=== PATIENT | female | born 1950 | race Caucasian/White ===

== ENCOUNTER 2017-10-23 00:10 | Day surgery (SDC) | payer MEDICARE, OTHER ==
[~2017-10-23] VITALS: Ht 165.1 cm; Wt 73.0 kg
[~2017-10-23 00:10] MED LIST: AMIT-104 PO; AMOX-559 PO; ASPI-1471 PO; ASPI-692 PO; BENZ200C15 PO; BUP75 PO; CALC1TAB32 PO; CALCIUM; CHOL400C10 PO; CIT20 PO; CLON-298 PO; CLON-303 PO; CYC10 PO; DICL100G39 TOP; DOCU100C49 PO; DOCU100T19 PO; EXCEDRINE; FISH OIL 1,2001 CAP PO; FISH OIL1 CAP PO; FLU IM; FLU45SYR17 IM; FLU45SYR25 IM ONLY; FLU60SYR30 IM ONLY; FLUO-201 PO; FLUO10TA24 PO; FRO2.5PT PO; GLUC-180 PO; GOLYTE PO; HCTZ25 PO; HYDR-389 PO; HYDR-393 PO; HYDR-4228 PO; HYDR50CA47 PO; HYDRO25 PO; IMITREX; KRIL500C2 PO; LACT1CAP62 PO; LEVO50TA80 PO; LIO5 PO; LUTE20CA11 PO; MELA1TAB2 PO; MELO-207 PO; MULT-1335 PO; MULT-865 PO; MULT1CAP59 PO; OMEG-36 PO; ONDA4TAB PO; OXYC-865 PO; OXYC-870 PO; PANT40TA63 PO; PANT40TA65 PO; PNEI IJ; PNEU0.5D3 IM; PRED20TA6 PO; PROG100C PO; PROLAMINE IODINE; ROPI0.2528 PO; ROPI0.5T25 PO; ROPI2TAB28 PO; SENN-220 PO; SERT25TA87 PO; SIMV-49 PO; SUMA100T32 PO; SUMA6PEN7 SQ; SUMA6VIA16 SQ; THYTROPHIN PMG; TRAM-420 PO; TRAZ-133 PO; TRAZ-156 PO; TRAZ-163 PO; TRAZ50 PO; VALE100C2 PO; VEN75 PO; VENL225T5 PO; VENL75TA98 PO; VIT1CAPS39 PO; VITA-129 PO; ZINC; ZOL5 PO; [UNRECOGNIZED DRUG - REMARK]
[2017-10-23 05:55] VITALS: BP 149/93
[2017-10-23] MEDS ORDERED: [UNRECOGNIZED DRUG - OTHER] IVP ONE ×2 (07:30→07:35)
[2017-10-23] MEDS ORDERED: LIDOCAINE/SOD BICARB 8.4% SYR ID ONE (07:45)
[2017-10-23] MEDS ORDERED: NORMOSOL R SOLN(*) 1000 ML BAG 1,000 ML IV PRN (07:45)
[2017-10-23 08:22] VITALS: BP 124/93
[2017-10-23] MEDS ORDERED: SUCR1TAB85 PO (08:27)
[2017-10-23 08:30] VITALS: BP 108/46
--- NOTE | 2017-10-23 08:38 | Short(Outpt) Discharge Summary ---
Discharge Summary Reason for Hosp/Final Diag: (1) PUD (peptic ulcer disease) Status: Chronic Hospital Course & Plan: EGD with biopsies and colonoscopy completed without problems. Pt has a cratered ulcer at junction of pylorus and duodenal bulb. (2) GERD (gastroesophageal reflux disease) Status: Chronic (3) Colon cancer screening Status: Chronic Departure Discharge to: Home, Self Care Discharge Instructions Home Meds Active Scripts Sucralfate (CARAFATE) 1 Gm Tablet, 1 TAB PO ACHS, #120 TAB 0 Refills Prov:ASHLEY TAM MD 10/23/17 Sumatriptan Succinate (IMITREX) 100 Mg Tablet, 1 TAB PO ONCE Y for migraine, #6 TAB 5 Refills Prov:MILAGROS EDWARDS MD 09/25/17 Peg/Electrolytes (GOLYTELY SOLUTION) 4,000 Ml Soln, 1 GAL PO ONCE, #1 GAL 0 Refills Prov:ASHLEY TAM MD 09/16/17 Ropinirole Hcl (ROPINIROLE HCL) 2 Mg Tablet, 1 TAB PO HS, #90 TAB 0 Refills Prov:SHARA AUGUSTE MD 09/02/17 Liothyronine Sodium (LIOTHYRONINE SODIUM) 5 Mcg Tablet, 1 TAB PO DAILY, #90 TAB 3 Refills Prov:MILAGROS EDWARDS MD 08/16/17 Venlafaxine Hcl (VENLAFAXINE HCL ER) 225 Mg Tab.er.24, 1 TAB PO QDAY, #30 TAB 5 Refills Prov:MILAGROS EDWARDS MD 06/26/17 Meloxicam (MELOXICAM) 15 Mg Tablet, 1 TAB PO QDAY, #90 TAB 4 Refills Prov:MILAGROS EDWARDS MD 06/14/17 Pantoprazole Sodium (PROTONIX) 40 Mg Tablet.dr, 1 TAB PO QDAY, #90 TAB.SR 3 Refills Prov:MILAGROS EDWARDS MD 02/26/17 Simvastatin (SIMVASTATIN) 20 Mg Tablet, 1 TAB PO HS, #90 TAB 3 Refills Prov:MILAGROS EDWARDS MD 01/28/17 Sertraline Hcl (ZOLOFT) 25 Mg Tablet, 1 TAB PO QDAY, #30 TAB 1 Refill Prov:MILAGROS EDWARDS MD 01/28/17 Frovatriptan Succinate (FROVA) 2.5 Mg Tablet, 1 TAB PO ONCE Y for HEADACHE, #6 TAB 5 Refills If headache returns dose may be repeated. Prov:MILAGROS EDWARDS MD 08/14/16 Reported Medications Cholecalciferol (Vitamin D3) (VITAMIN D) 400 Unit Capsule, 800 UNIT PO, CAPSULE 10/15/17 Krill Oil (KRILL OIL) 500 Mg Capsule, 500 MG PO DAILY, CAPSULE 10/15/17 Valerian Root (VALERIAN ROOT) 100 Mg Capsule, 3 CAP PO HS, CAPSULE 04/17/15 Diclofenac Sodium 1% Gel (VOLTAREN 1% GEL) 100 Gm Gel..gram., 2 GM TOP Q4H Y for PAIN 04/17/15 Acetaminophen/Hydrocodone (HYDROCODON-ACETAMINOPHN 10-325) 1 Each Tab, 1 EACH PO Q4H Y for PAIN, TAB 04/17/15 Docusate Sodium (STOOL SOFTENER) 100 Mg Tablet, 1 TAB PO BID 04/17/15 Progesterone,Micronized (PROGESTERONE) 100 Mg Capsule, 2 TAB PO HS, CAPSULE 04/17/15 Melatonin/Pyridoxine Hcl (B6) (MELATONIN 10 MG TABLET) 1 Each Tab.mphase, 2 TAB PO HS 03/30/15 Vit C/Beba Ac/Lut/Copper/Znox (PRESERVISION LUTEIN SOFTGEL) 1 Each Capsule, 1 CAP PO QDAY, CAPSULE 10/20/14 Hptujksd-Lhzehtl-Rtvv 149-Hyal (GLUCOSAMINE CHONDROITIN COMPLX) 1 Each Tablet, 1 TAB PO DAILY 03/29/14 Calcium Carb & Cit/Vitamin D3 (CALCIUM + D3 ER TABLET) 1 Each Tablet.er, 1 TAB PO DAILY 03/29/14 Follow up Referrals: General Surgery - 11/08/17 @ Surgery, General with Ashley Tam Md You have a follow up appointment scheduled with Dr. Tam on 11/08/17, at 11:00am. Diet: Regular Activity: As Tolerated Special Instructions: Your upper endoscopy and your colonoscopy were completed without any problems and your colon prep was excellent (Good Job!!). You have an ulcer where your stomach empties into your duodenum. Because of this, I recommed that you continue taking pantoprazole once every day as you're doing. I am going to add a 30 day course of another medication called carafate that helps the ulcer to heal. Using NSAIDS (non-steroidal anti-inflammatory drugs such as ibuprofen, motrin, aleve, advil, naproxen, naprosyn, meloxicam, etc. Tylenol (acetaminophen) is OK) can lead to ulcers and so any NSAID type of medication should be avoided. Your colon was almost normal. 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 I have provided a handout to you regarding this condition. I recommend getting off the laxative and trying an alternative bowel regimen that I have also provided for you. You have a hiatal hernia where a small portion of your upper stomach is protruding into your chest. This is a common (40 percent of people that I see have this to some degree) benign condition and I don't recommend that anything be done about this. I will see you back in my office in the next couple weeks to discuss these with you and see how you are doing. At any rate, your next colonoscopy should be in 10 years for screening. Problem Qualifiers (1) GERD (gastroesophageal reflux disease): Esophagitis presence: without esophagitis Qualified Codes: K21.9 - Gastro- esophageal reflux disease without esophagitis ASHLEY TAM MD October 23, 2017 08:38
[2017-10-23 08:54] VITALS: BP 130/76
[2017-10-23 08:56] VITALS: BP 125/84
[2017-10-23] MEDS ORDERED: PROPOFOL EMUL(*) 10MG/ML 20 ML 120 ML ONE (08:59)
[2017-10-23] MEDS ORDERED: SUMA100T32 PO (17:08)
== END 2017-10-23 09:50 | disposition home or self-care (01) ==
LOC: OR 00:10
PROVIDERS: ATTEND Surgery
DX: Z12.11 Encounter for screening for malignant neoplasm of colon (principal); K63.89 Other specified diseases of intestine; K44.9 Diaphragmatic hernia without obstruction or gangrene; K25.7 Chronic gastric ulcer without hemorrhage or perforation
CPT/HCPCS: 00812; 43239; 87077; 88305; A9270; G0121; J2704

== ENCOUNTER → 2017-10-25 | Outpatient (CLI) | payer MEDICARE, OTHER ==
[~2017-10-25] MED LIST changes: +SUCR1TAB85 PO
--- NOTE | 2017-10-25 09:37 | RADIOLOGY IMAGING REPORT ---
FACILITY: [facility] - [place] PATIENT NAME: Vicky Hughes : 1950 MR: [id number] V: [id number] EXAM DATE: ORDERING PHYSICIAN: ASHLEY TAM TECHNOLOGIST: Location: [facility] Patient: Vicky Hughes : 1950 Visit/Account:[id number] Date of Sevice: 10/25/2017 GALLBLADDER HISTORY: Right upper quadrant pain COMPARISON: None. FINDINGS: Gallbladder: Negative.. Bile ducts: There is no biliary ductal dilation with the CBD measuring 4 mm. Liver: Negative. Pancreas: Negative. Right kidney: Negative. Upper abdominal aorta and IVC: Patent. Ascites: None visualized. Other findings: None significant IMPRESSION: 1. Normal right upper quadrant ultrasound. Report Dictated By: Micheal Up MD at 10/25/2017 9:31 AM Report E-Signed By: Micheal Up MD at 10/25/2017 9:33 AM WSN:[email or web address]
== END ==
LOC: US 01:10
PROVIDERS: ATTEND Surgery
DX: R10.10 Upper abdominal pain, unspecified (principal)
CPT/HCPCS: 76705

== ENCOUNTER 2017-11-01 14:02 | Emergency (ER) | payer MEDICARE, OTHER ==
--- NOTE | 2017-11-01 14:15 | ER Report ---
History and Physical Time Seen By MD: 14:15 Hx. of Stated Complaint: PT REPORTS ITCHING OF RECTUM AT NIGHT FOR 6-8 WEEKS, APPLIED SCOTCH TAPE AND SAW LITTLE WHITE WORMS HPI/ROS CHIEF COMPLAINT: Possible pinworm infection HISTORY OF PRESENT ILLNESS: 67-year-old female patient presents to emergency room with complaint of a possible pinworm infection. Patient states been going on for the past several weeks. Patient states she's noticed that she has rectal itching which is most significant at night. Patient states she had a colonoscopy approximately one week ago which showed no acute findings. Patient states that she has significant amount of irritation to the rectum itself. Patient states that she was concerned about possible pinworm infection and did place scratch tape over her rectum at night. She states the mornings there were white worms that she noted on the tape. Patient states that she has tried apple cider vinegar, which seem to help, coconut milk, which did not seem to help, petroleum jelly also she did not seem to help. Allergies: Coded Allergies: Sulfa (Sulfonamide Antibiotics) (Verified Allergy, Severe, GENERALIZED SYMPTOMS , 01/24/15) Home Meds Active Scripts Albendazole (ALBENZA) 200 Mg Tab, 400 MG PO ONCE, #4 TAB Take 2 tabs today adn then take 2 tabs in 2 weeks on 11/15/17. Take on an empty stomach. Prov:RAYMOND ETIENNE 11/01/17 Sumatriptan Succinate (IMITREX) 100 Mg Tablet, 1 TAB PO ONCE Y for migraine, #6 TAB 5 Refills Prov:MILAGROS EDWARDS MD 10/23/17 Sucralfate (CARAFATE) 1 Gm Tablet, 1 TAB PO ACHS, #120 TAB 0 Refills Prov:ASHLEY TAM MD 10/23/17 Ropinirole Hcl (ROPINIROLE HCL) 2 Mg Tablet, 1 TAB PO HS, #90 TAB 0 Refills Prov:SHARA AUGUSTE MD 09/02/17 Liothyronine Sodium (LIOTHYRONINE SODIUM) 5 Mcg Tablet, 1 TAB PO DAILY, #90 TAB 3 Refills Prov:MILAGROS EDWARDS MD 08/16/17 Venlafaxine Hcl (VENLAFAXINE HCL ER) 225 Mg Tab.er.24, 1 TAB PO QDAY, #30 TAB 5 Refills Prov:MILAGROS EDWARDS MD 06/26/17 Pantoprazole Sodium (PROTONIX) 40 Mg Tablet.dr, 1 TAB PO QDAY, #90 TAB.SR 3 Refills Prov:MILAGROS EDWARDS MD 02/26/17 Simvastatin (SIMVASTATIN) 20 Mg Tablet, 1 TAB PO HS, #90 TAB 3 Refills Prov:MILAGROS EDWARDS MD 01/28/17 Sertraline Hcl (ZOLOFT) 25 Mg Tablet, 1 TAB PO QDAY, #30 TAB 1 Refill Prov:MILAGROS EDWARDS MD 01/28/17 Frovatriptan Succinate (FROVA) 2.5 Mg Tablet, 1 TAB PO ONCE Y for HEADACHE, #6 TAB 5 Refills If headache returns dose may be repeated. Prov:MILAGROS EDWARDS MD 08/14/16 Reported Medications Cholecalciferol (Vitamin D3) (VITAMIN D) 400 Unit Capsule, 800 UNIT PO, CAPSULE 10/15/17 Krill Oil (KRILL OIL) 500 Mg Capsule, 500 MG PO DAILY, CAPSULE 10/15/17 Valerian Root (VALERIAN ROOT) 100 Mg Capsule, 3 CAP PO HS, CAPSULE 04/17/15 Diclofenac Sodium 1% Gel (VOLTAREN 1% GEL) 100 Gm Gel..gram., 2 GM TOP Q4H Y for PAIN 04/17/15 Acetaminophen/Hydrocodone (HYDROCODON-ACETAMINOPHN 10-325) 1 Each Tab, 1 EACH PO Q4H Y for PAIN, TAB 04/17/15 Docusate Sodium (STOOL SOFTENER) 100 Mg Tablet, 1 TAB PO BID 04/17/15 Progesterone,Micronized (PROGESTERONE) 100 Mg Capsule, 2 TAB PO HS, CAPSULE 04/17/15 Melatonin/Pyridoxine Hcl (B6) (MELATONIN 10 MG TABLET) 1 Each Tab.mphase, 2 TAB PO HS 03/30/15 Vit C/Beba Ac/Lut/Copper/Znox (PRESERVISION LUTEIN SOFTGEL) 1 Each Capsule, 1 CAP PO QDAY, CAPSULE 10/20/14 Kmujojoq-Wpckdik-Mrfi 149-Hyal (GLUCOSAMINE CHONDROITIN COMPLX) 1 Each Tablet, 1 TAB PO DAILY 03/29/14 Calcium Carb & Cit/Vitamin D3 (CALCIUM + D3 ER TABLET) 1 Each Tablet.er, 1 TAB PO DAILY 03/29/14 Past Medical/Surgical History Patient has a past medical history of migraines, dementia, hypertension, cardiac arrhythmia, hyperlipidemia, ulcer, Patel's esophagitis, H. pylori, reflux, hiatal hernia, mild endometriosis, arthritis, macular degeneration, hypothyroidism, skin cancer, alcohol use, depression. Patient has a surgical history of hiatal hernia repair, colonoscopy, meniscus repair bilaterally, reattached the lens in left eye, cataract surgery, skin cancer removed from nose, bilateral breast biopsy. Patient has a family medical history of cancer, CAD, stroke, depression. Reviewed Nurses Notes: Yes Hx Smoking: No Smoking Status: Never Smoker Exposure to Second Hand Smoke?: Yes Hx Substance Use Disorder: No Hx Alcohol Use: Yes Constitutional Vital Sign - Last 24 Hours 11/01/17 11/01/17 14:08 14:51 Temp 98.4 Pulse 94 84 Resp 16 16 B/P (MAP) 152/101 145/86 (105) Pulse Ox 92 95 O2 Delivery Room Air Room Air Physical Exam General Appearance: The patient is alert, has no immediate need for airway protection and no current signs of toxicity. Respiratory: Chest is non tender, lungs are clear to auscultation. Cardiac: regular rate and rhythm Gastrointestinal: Abdomen is soft and non tender, no masses, bowel sounds normal. Rectum was evaluated, patient did have erythema noted around the rectum. Musculoskeletal: Neck: Neck is supple and non tender. Extremities have full range of motion and are non tender. Skin: No rashes or lesions. DIFFERENTIAL DIAGNOSIS: After history and physical exam differential diagnosis was considered for pinworm infection. Medical Decision Making ED Course/Re-evaluation ED Course Patient was admitted in exam room, history and physical obtained. Differential diagnoses were considered. On reexamination patient had some erythema noted around her rectum, no other abnormalities noted. Due to the history especially with the itching being worse at night and the white worms found on the taper believe that she likely does have pinworm. We will go ahead and treat her with an antiparasitic medication. She is return to the emergency room if condition worsens. Patient verbalized understanding and agreement with plan. Decision to Disposition Date: November 01, 2017 Decision to Disposition Time: 14:30 Depart Departure Latest Vital Signs Vital Signs Date Time Temp Pulse Resp B/P (MAP) Pulse Ox O2 Delivery O2 Flow Rate FiO2 11/01/17 14:51 84 16 145/86 (105) 95 Room Air 11/01/17 14:08 98.4 Impression: Primary Impression: Pinworm infection Condition: Improved Disposition: HOME OR SELF-CARE Referrals: MILAGROS EDWARDS MD (PCP) New Scripts Albendazole (ALBENZA) 200 Mg Tab 400 MG PO ONCE, #4 TAB Take 2 tabs today adn then take 2 tabs in 2 weeks on 11/15/17. Take on an empty stomach. Prov: RAYMOND ETIENNE 11/01/17 Patient Instructions: Enterobiasis (ED) Additional Instructions: Increase fluid intake. Get plenty of rest. Take medication as directed, one dose today and then 1 dose in 2 weeks. Take medication on an empty stomach. Return to the ER if condition worsens. Change linens today prior to going to bed. Follow up with your Primary care provider in the next week. RAYMOND ETIENNE November 01, 2017 14:15
[2017-11-01] MEDS ORDERED: ALBE200T PO (14:31)
[2017-11-01 14:51] VITALS: BP 145/86
== END 2017-11-01 14:53 | disposition home or self-care (01) ==
LOC: ER 14:04
DX: B80 Enterobiasis (principal)
CPT/HCPCS: 99282

== ENCOUNTER → 2018-07-14 | Outpatient (CLI) | payer MEDICARE, OTHER ==
[~2018-07-14] MED LIST changes: +ALBE200T PO; +ALPH1TAB PO; +CA C1TAB9 PO; +CHOL100058 PO; -CLON-298 PO; +CLON-331 PO; +ECHI380C; +MELA10CA PO; -ROPI0.2528 PO; +ROPI0.2530 PO; -TRAZ-156 PO; -TRAZ-163 PO; +TRAZ100T31 PO; +TRAZ50TA34 PO; +VITA-175 PO; +tylenol pm PO
[2018-07-14 12:19] LABS: PLATELET COUNT, AUTOMATED 320 K/uL (150-450)
== END ==
LOC: LAB 11:41
PROVIDERS: ATTEND Emergency Medicine
DX: M85.80 Other specified disorders of bone density and structure, unspecified site (principal); R03.0 Elevated blood-pressure reading, without diagnosis of hypertension; R20.8 Other disturbances of skin sensation
CPT/HCPCS: 36415; 82040; 82247; 82306; 82310; 82374; 82435; 82565; 82607; 82947; 83540; 83550; 84075; 84132; 84155; 84295; 84443; 84450; 84460; 84520; 85025

== ENCOUNTER → 2018-08-04 | Outpatient (CLI) | payer MEDICARE, OTHER | LOC: LAB 15:34 | PROVIDERS: ATTEND Emergency Medicine | DX: R94.5 Abnormal results of liver function studies (principal) | CPT/HCPCS: 36415; 82103; 82390; 82784; 83516; 86706; 86707; 87340; 87350; G0472; 82040; 82247; 82248; 84075; 84155; 84450; 84460; 86803 ==

== ENCOUNTER → 2018-08-14 | Outpatient (CLI) | payer MEDICARE, OTHER ==
[~2018-08-14] MED LIST changes: +ROS10 PO
--- NOTE | 2018-08-15 09:47 | RADIOLOGY IMAGING REPORT ---
FACILITY: [facility] - [place] PATIENT NAME: AI GREEN : [id number] MR: [id number] V: [id number] EXAM DATE: ORDERING PHYSICIAN: MILAGROS EDWARDS TECHNOLOGIST: Karime Dodson PROCEDURE:BILATERAL DIGITAL SCREENING MAMMOGRAM WITH CAD ASSISTED INTERPRETATION & 3D TOMOSYNTHESIS COMPARISON:Prior mammograms 01/20/16, 01/06/15, 11/25/13, 07/24/12. INDICATIONS:screening FINDINGS: There are scattered areas of fibroglandular density throughout the breasts. There is a nodular area of increased density just lateral to midline in the anterior 1/3 of the Right breast on the Right CC view for which Spot compression view is recommended. This appears to be posterior to mid nipple line on the Right MLO view. There is a new grouping of pleomorphic calcifications in the anterior 1/3 of the Left breast just above midline on the Left MLO view just lateral to midline on the Left CC view for which Spot magnification view is recommended. The parenchymal pattern has remained stable allowing for difference in mammographic technique & patient positioning. DIAGNOSTIC CATEGORY 0--INCOMPLETE: NEED ADDITIONAL IMAGING EVALUATION. RECOMMENDATIONS: ADDITIONAL MAMMOGRAPHIC VIEWS REQUIRED: BILATERAL BREASTS. IMPRESSION: BIRADS 0: Incomplete. Additional views of both breasts recommended as described. Dictated by: Gracia Macias M.D. on 08/14/2018 at 17:31 Transcribed by: OSEI on 08/15/2018 at 9:01 Approved by: Gracia Macias M.D. on 08/15/2018 at 9:45 [facility]
== END ==
LOC: MAMO 00:34
PROVIDERS: ATTEND Internal Medicine
DX: R92.2 Inconclusive mammogram (principal)
CPT/HCPCS: 77063; 77067

== ENCOUNTER → 2018-08-20 | Outpatient (CLI) | payer MEDICARE, OTHER ==
--- NOTE | 2018-08-20 09:43 | RADIOLOGY IMAGING REPORT ---
FACILITY: [facility] - [place] PATIENT NAME: Vicky Hughes : 1950 MR: [id number] V: [id number] EXAM DATE: ORDERING PHYSICIAN: DORI BATISTA TECHNOLOGIST: [place] [facility] [place]icky [place] : 1950 Visit/Account:[id number] Date of Sevice: 08/20/2018 LIVER HISTORY: Elevated liver and times COMPARISON: Gallbladder ultrasound October 25, 2017 FINDINGS: Gallbladder: Unremarkable; no stones or sludge. Liver: Liver is mildly enlarged at 16.6 cm in length although no focal hepatic lesions identified Common duct: Normal, 6.2 mm diameter. Pancreas: Partially obscured by bowel, visualized aspects unremarkable. Right kidney: Right kidney appears unremarkable measuring 9.5 cm in length Upper abdominal aorta and IVC: Patent. Ascites: None visualized. IMPRESSION: Mild hepatomegaly Report Dictated By: Gracia Macias MD at 08/20/2018 9:36 AM Report E-Signed By: Gracia Macias MD at 08/20/2018 9:38 AM WSN:[id number]
== END ==
LOC: US 08-15 02:34
PROVIDERS: ATTEND Emergency Medicine
DX: R16.2 Hepatomegaly with splenomegaly, not elsewhere classified (principal)
CPT/HCPCS: 76705

== ENCOUNTER → 2018-09-01 | Outpatient (CLI) | payer MEDICARE, OTHER ==
[~2018-09-01] MED LIST changes: -ROS10 PO; +ROSU10TA PO
--- NOTE | 2018-09-02 15:30 | RADIOLOGY IMAGING REPORT ---
FACILITY: [facility] - [place] PATIENT NAME: AI GREEN : [id number] MR: [id number] V: [id number] EXAM DATE: ORDERING PHYSICIAN: DORI BATISTA TECHNOLOGIST: Marce Naranjo PROCEDURE:BILATERAL DIAGNOSTIC DIGITAL MAMMOGRAM WITH CAD ASSISTED INTERPRETATION & 3D TOMOSYNTHESIS COMPARISON:Prior mammograms 08/14/18, 01/20/16, 01/06/15, 11/25/13, 07/24/12. INDICATIONS:abnormal mammogram FINDINGS: The patient returned for Spot compression views in the CC & MLO projections bilaterally and a Spot magnification view in the Left CC projection. The focal asymmetry in the anterior 1/3 of the Right breast on the recent study appeared compressible and apparently represented a summation shadow. The new slightly pleomorphic calcifications in the anterior 1/3 of the Left breast upper outer quadrant warrant further evaluation. The patient states she does not want to do a Stereo tactic breast biopsy therefore surgical excision coordinated with mammographic hookwire localization recommended. DIAGNOSTIC CATEGORY 4--SUSPICIOUS FOR MALIGNANCY. RECOMMENDATIONS: SURGICAL BIOPSY COORDINATED WITH MAMMOGRAM HOOKWIRE LOCALIZATION: LEFT BREAST. IMPRESSION: BIRADS 4: Suspicious for malignancy. Surgical biopsy of the Left breast coordinated with mammographic hookwire localization recommended as described above. Dictated by: Grcaia Macias M.D. on 09/01/2018 at 17:14 Transcribed by: OSEI on 09/02/2018 at 8:28 Approved by: Gracia Macias M.D. on 09/02/2018 at 15:29 [facility]
== END ==
LOC: MAMO 00:25
PROVIDERS: ATTEND Emergency Medicine
DX: R92.1 Mammographic calcification found on diagnostic imaging of breast (principal)
CPT/HCPCS: 77062; 77066

== ENCOUNTER 2018-09-12 00:49 | Day surgery (SDC) | payer MEDICARE, OTHER ==
[~2018-09-12] VITALS: Ht 162.6 cm; Wt 75.3 kg
[2018-09-12 11:46] VITALS: BP 135/82
[2018-09-12] MEDS ORDERED: NORMOSOL R SOLN(*) 1000 ML BAG 1,000 ML IV PRN (12:40)
[2018-09-12] MEDS ORDERED: ceFAZolin(*) 2GM/D5W 50ML 50 ML IVPB ONE (12:40)
[2018-09-12] MEDS ORDERED: MIDAZOLAM 2 MG/2 ML VIAL IVP PRN (12:40)
[2018-09-12] MEDS ORDERED: LIDOCAINE/SOD BICARB 8.4% SYR ID ONE (12:40)
[2018-09-12] MEDS ORDERED: LIDOCAINE MPF 1% 5 ML VIAL ONE (12:44)
[2018-09-12] MEDS ORDERED: fentaNYL CITR 100 MCG/2 ML AMP ONE (13:18)
[2018-09-12] MEDS ORDERED: KETAMINE HCL-NS 50 MG/5 ML SYR ONE (13:18)
[2018-09-12] MEDS ORDERED: ONDANSETRON 4 MG/2 ML VIAL ONE (13:18)
[2018-09-12] MEDS ORDERED: DEXAMETHASONE SOD PHOS 10MG/ML ONE (13:18)
[2018-09-12] MEDS ORDERED: PROPOFOL EMUL(*) 10MG/ML 20 ML 20 ML ONE (13:18)
[2018-09-12] MEDS ORDERED: LIDOCAINE 2% IV 100 MG/5ML SYR ONE (13:18)
[2018-09-12] MEDS ORDERED: ROPIVACAINE 0.5% 20 ML VIAL ONE (14:02)
[2018-09-12] MEDS ORDERED: ePHEDrine 25 MG/5 ML DISP.SYR IVP ONE (14:27)
[2018-09-12] MEDS ORDERED: ACETAMINOPHEN(*)1000 MG/100 ML 100 ML IVPB ONE (15:39)
[2018-09-12] MEDS ORDERED: DOCU-416 PO (15:41)
--- NOTE | 2018-09-12 15:46 | Short(Outpt) Discharge Summary ---
Discharge Summary Reason for Hosp/Final Diag: (1) Calcification of left breast on mammography Status: Chronic Hospital Course & Plan: Wire-guided left breast excisional biopsy completed without problems. Departure Discharge to: Home, Self Care Discharge Instructions Home Meds Active Scripts Docusate Sodium (COLACE) 100 Mg Capsule, 1 CAP PO BID, #30 CAP 0 Refills TAKE WITH A FULL GLASS OF WATER Prov:ASHLEY TAM MD 09/12/18 Sertraline Hcl (ZOLOFT) 25 Mg Tablet, 1 TAB PO QDAY, #90 TAB 3 Refills Prov:DORI BATISTA MD 08/18/18 Liothyronine Sodium (LIOTHYRONINE SODIUM) 5 Mcg Tablet, 1 TAB PO DAILY, #90 TAB PRN Refills Prov:DORI BATISTA MD 08/18/18 Venlafaxine Hcl (VENLAFAXINE HCL ER) 225 Mg Tab.er.24, 1 TAB PO QDAY, #90 TAB 3 Refills Prov:DORI BATISTA MD 08/14/18 Rosuvastatin Calcium (CRESTOR) 10 Mg Tab, 10 MG PO QDAY, #60 TAB 0 Refills Prov:DORI BATISTA MD 08/11/18 Sumatriptan Succinate (IMITREX) 100 Mg Tablet, 1 TAB PO ONCE PRN for migraine, #6 TAB Prov:DORI BATISTA MD 08/05/18 Pantoprazole Sodium (PROTONIX) 40 Mg Tablet.dr, 1 TAB PO QDAY, #90 TAB.SR 3 Refills Prov:MILAGROS EDWARDS MD 03/31/18 Reported Medications Echinacea (ECHINACEA) Unknown Strength Capsule 07/14/18 Melatonin (MELATONIN) 10 Mg Capsule, 10 MG PO QHS, CAPSULE 07/14/18 [tylenol pm] No Conflict Check, 2 TAB PO QHS 07/14/18 Tramadol Hcl (TRAMADOL HCL) 50 Mg Tablet, 50 MG PO Q6H PRN for PRN, TAB 07/14/18 Calcium/Magnesium (CALCIUM MAGNESIUM TABLET) 1 Each Tablet, 1 EACH PO DAILY 07/14/18 Cholecalciferol (Vitamin D3) (VITAMIN D) 1,000 Unit Capsule, 1 CAP PO QDAY, CAPSULE 12/31/17 Vitamin B Complex (B COMPLEX) 1 Each Tablet, 1 TAB PO QDAY 12/26/17 Valerian Root (VALERIAN ROOT) 100 Mg Capsule, 3 CAP PO HS, CAPSULE 04/17/15 Acetaminophen/Hydrocodone (HYDROCODON-ACETAMINOPHN 10-325) 1 Each Tab, 1 EACH PO Q4H PRN for PAIN, TAB 04/17/15 Vit C/Beba Ac/Lut/Copper/Znox (PRESERVISION LUTEIN SOFTGEL) 1 Each Capsule, 1 CAP PO QDAY, CAPSULE 10/20/14 Gjzkfemo-Wmcrjxt-Hyjc 149-Hyal (GLUCOSAMINE CHONDROITIN COMPLX) 1 Each Tablet, 1 TAB PO DAILY 03/29/14 Discontinued Reported Medications Fyumk-D-Ejtsceuniagyv (Beano) 150 Unit Tablet, 1 TAB PO PRN 07/14/18 Discontinued Scripts Ropinirole Hcl (ROPINIROLE HCL) 2 Mg Tablet, 1 TAB PO HS, #90 TAB 1 Refill Prov:MILAGROS EDWARDS MD 05/21/18 Follow up Referrals: General Surgery - 09/26/18 @ Surgery, General with ASHLEY TAM MD You have a follow up appointment scheduled with Dr. Tam on 09/26/18, at 10:30am. Diet: Regular Activity: As Tolerated Special Instructions: You may remove the white surgical dressing on 09/14/18, then you can shower. After showering, leave the incision open to air but leave the steristrips in place until they fall off on their own. Do not immerse the incision for 2 weeks. ASHLEY TAM MD Sep 12, 2018 15:46
--- NOTE | 2018-09-12 15:52 | Post Operative Progress Note ---
Post Operative Progress Note Date: Sep 12, 2018 Time: 15:46 Surgeon: Chelita Dictation number: [id number] Anesthesia: LMA by Dr. Dow Pre-Op Diagnosis: Left breast microcalcifications on mammography Post-Op Diagnosis: DEL Findings: None Procedure(s): Left breast wire-guided excision of microcalcifications Specimen Removed:(May be N/A): Left breast lesion Complications: None Fluids: See anesthesia record Estimated Blood Loss: Minimal Date OP Note Dictated: Sep 12, 2018 Time OP Note Dictated: 15:47 ASHLEY TAM MD Sep 12, 2018 15:52
[2018-09-12 16:15] VITALS: BP 118/71
[2018-09-12 16:30] VITALS: BP 108/61
[2018-09-12 16:37] VITALS: BP 118/82
[2018-09-12 16:38] VITALS: BP 109/79
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
--- NOTE | 2018-09-16 12:52 | RADIOLOGY IMAGING REPORT ---
FACILITY: [facility] - [place] PATIENT NAME: AI GREEN : [id number] MR: [id number] V: [id number] EXAM DATE: [id number] ORDERING PHYSICIAN: ASHLEY TAM TECHNOLOGIST: Marce Naranjo PROCEDURE: BREAST SPECIMEN COMPARISON: None. INDICATIONS: calcifications FINDINGS: Please see localization report. CONCLUSION: Dictated by: Villa Campbell M.D. on 09/12/2018 at 16:25 Transcribed by: OSEI on 09/15/2018 at 11:26 Approved by: Senthil Ludwig M.D. on 09/16/2018 at 12:51 [facility]
--- NOTE | 2018-09-16 12:52 | RADIOLOGY IMAGING REPORT ---
FACILITY: [facility] PATIENT NAME: AI GREEN : [id number] MR: [id number] V: [id number] EXAM DATE: [id number] ORDERING PHYSICIAN: ASHLEY TAM TECHNOLOGIST: Marce Naranjo PROCEDURE: NEEDLE LOCALIZATION LEFT BREAST COMPARISON: None. INDICATIONS: Left breast calcifications. FINDINGS: The procedure and risks including bleeding, infection, and inadequate localization were explained to the patient who agreed to proceed. Using a lateral to medial approach the Left breast calcifications were centered in the opening of a compression paddle. The breast was sterilely prepped and draped. A guide needle was then advanced into the breast. A hook wire was deployed. Final mammographic images demonstrate the shaft of the wire in close proximity to the Left retroareolar calcifications. A sterile dressing was applied. Left breast specimen radiograph demonstrates the hook wire and calcifications projecting on the specimen. The findings were discussed with Dr. Ashley Tam. RECOMMENDATIONS: CONCLUSION: IMPRESSION: Results pending: Mammography guided needle localization of Left breast calcifications. Dictated by: Villa aCmpbell M.D. on 09/12/2018 at 16:24 Transcribed by: OSEI on 09/15/2018 at 11:25 Approved by: Senthil Ludwig M.D. on 09/16/2018 at 12:50 [facility]
== END 2018-09-12 16:15 | disposition home or self-care (01) ==
LOC: OR 00:49
PROVIDERS: ATTEND Surgery
DX: C50.912 Malignant neoplasm of unspecified site of left female breast (principal)
CPT/HCPCS: 19101; 19283; 88305; 88344; J0131; J1100; J2001; J2405; J2704; J2795; J3010; J3490; J0690

== ENCOUNTER 2018-11-27 09:00 | Outpatient (RCR) | payer MEDICARE, OTHER ==
[2018-10-07 14:37] VITALS: BP 136/85
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
[2018-10-08 13:50] VITALS: BP 133/84
[2018-10-08 13:56] LABS: PLATELET COUNT, AUTOMATED 365 K/uL (150-450)
[~2018-11-27 09:00] MED LIST changes: +DOCU-416 PO; +FURO-47 PO; +LIOT5TAB PO; -TRAZ50TA34 PO; +TRAZ50TA52 PO; +ZOLP-350 PO
[2018-12-23] MEDS ORDERED: ROSU10TA PO (13:45)
== END 2019-01-04 ==
LOC: RAON 09:00
PROVIDERS: ATTEND Radiology Radiation Oncology
DX: Z51.11 Encounter for antineoplastic chemotherapy (principal); D05.12 Intraductal carcinoma in situ of left breast
CPT/HCPCS: 77280; 77300; 77334; 77336; 77412; G0463; 36415; 77290; 77295; 82040; 82247; 82310; 82374; 82435; 82565; 82947; 84075; 84132; 84155; 84295; 84450; 84460; 84520; 85025; 99202

== ENCOUNTER 2018-11-27 10:21 | Outpatient (RCR) | payer MEDICARE, OTHER ==
[2018-10-24 08:27] VITALS: BP 131/88
--- NOTE | 2018-10-24 10:16 | ONCOLOGY CONSULTATION ---
EVENT DATE: October 24, 2018 REFERRING PHYSICIANS MD Bib Vasquez MD REASON FOR CONSULTATION Evaluation and management of left breast DCIS. ONCOLOGY HISTORY Patient is a 68-year old female which on: 1. August 14, 2018: Screening mammogram showed pleomorphic calcification in the left breast. 2. September 01, 2018: Patient had bilateral diagnostic mammogram with CAD-assisted interpretation and 3D tomosynthesis and it was suspicious for malignancy. 3. September 12, 2018: Patient had needle localization lumpectomy of the left breast and pathology came back positive for 1.2 cm micropapillary and cribriform DCIS, ER 82.5%, VA 40.9%, HER2/mirna 0%, Ki-67 2% and D53 1%. Patient started adjuvant radiation therapy September 2018. PAST MEDICAL HISTORY 1. 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 2. Hyperlipidemia. 3. Migraine. 4. Restless leg syndrome. 5. GERD. 6. Peptic ulcer disease. 7. Depression. PAST SURGICAL HISTORY 1. Bilateral arthroscopic knee surgeries. 2. Hernia repair. 3. Laparoscopy at age of 29 years. 4. Breast biopsy x2. 5. Bilateral cataract surgery. FAMILY HISTORY Father had melanoma and squamous cell carcinoma of the skin. SOCIAL HISTORY Patient is with two children. She is a retired teacher. Denies any abuse of tobacco, alcohol or illicit drugs. CURRENT MEDICATIONS 1. Docusate sodium 100 mg capsule twice a day. 2. Zoloft 25 mg daily. 3. Liothyronine sodium 5 mcg daily. 4. Venlafaxine 225 mg one tablet daily. 5. Crestor 10 mg daily. 6. Protonix 40 mg daily. 7. Imitrex 100 mg as needed. 8. Melatonin 10 mg at bedtime. 9. Tylenol p.r.n. 10. Tramadol 50 mg every six hours p.r.n. 11. Calcium magnesium tablets one tablet daily. 12. Vitamin D 1000 units daily. 13. Vitamin B complex one tablet daily. 14. [place] 10/325 mg q.4h p.r.n. for pain. 15. Preserve Vision one capsule daily. 16. Glucosamine Chondroitin Complex one tablet daily. ALLERGIES Sulfa. It does not actually cause allergic reactions but she did not improve on Sulfa antibiotic. REVIEW OF SYSTEMS CONSTITUTIONAL: No appetite or weight change. No fever, chills or sweating. No recent infection. HEENT: Ears: No tinnitus or hearing problem. Nose: No nasal discharge or epistaxis. Throat: No sore throat or mouth ulcers. Eyes: No diplopia or visual changes. RESPIRATORY: She has cough with little phlegm. CARDIOVASCULAR: No chest pain, orthopnea, or paroxysmal nocturnal dyspnea (PND). No edema. No palpitations. GASTROINTESTINAL: No nausea or vomiting. No diarrhea or constipation. No change in bowel movements. No heartburn or swallowing difficulties. No abdominal pain. No jaundice. No hematemesis, melena or rectal bleeding. GENITOURINARY: Patient has had heavy periods for years, and she has been seen by a fisher hand line, and she was offered uterine ablation, but the patient refused the procedure. As per patient, she has had heavy periods for a total of seven days every month. MUSCULOSKELETAL: She has bilateral knee pain. She had bilateral arthroscopic surgery on both knees in the past. NEUROLOGICAL: She has occasional headache and she has migraine also. HEMATOLOGIC/LYMPHATIC: She is weak, tired and fatigued. SKIN: No skin rash or lumps. PSYCHIATRIC: No anxiety or depression. PHYSICAL EXAMINATION GENERAL: Looks stable. Well-developed, well-nourished, and in no acute distress. VITAL SIGNS: Blood pressure 151/88, pulse 104 per minute, respirations 16 per minute, temperature 97.4, pulse ox 94% on room air. HEENT: Head: Atraumatic. No sinus tenderness to palpation. Eyes: No icterus or conjunctivitis. Mouth and Throat: No oral thrush or mucositis. NECK: Supple. No cervical or supraclavicular lymphadenopathy. LUNGS: Clear to auscultation and percussion bilaterally. HEART: Regular rate and rhythm. No gallops, murmurs, clicks or rubs. ABDOMEN: Soft and lax. No tenderness. No hepatosplenomegaly. No masses. EXTREMITIES: No cyanosis, clubbing or edema. LYMPHATICS: No peripheral lymphadenopathy. NEUROLOGICAL: Conscious, alert and oriented x3. No focal motor or sensory deficits. PSYCHIATRIC: Mood and affect appear normal. SKIN: No skin rash, bruise or purpuric eruption. ASSESSMENT Ductal carcinoma in situ of the left breast, status post needle localization lumpectomy of the left breast done on September 12, 2018, and the pathology came back positive for 1.2 cm micropapillary and cribriform ductal carcinoma in situ, ER 82.5% positive, VA 40.9% positive, HER2/mirna 0%, Ki-67 2% and D53 1%. I had a long discussion with the patient and her today regarding the natural progression of normal breast tissue to invasive cancer. I talked to her also about the role of tamoxifen in the treatment of ductal carcinoma in situ. Patient is aware that tamoxifen would decrease the risk of estrogen receptor positive breast cancer by about 50% and it works also a chemo preventive agent for the other breast to prevent estrogen receptor positive breast by also 50%. I talked to her also about the side effect expected from tamoxifen, which could include blood clotting, uterine cancer. As per patient, on questioning her regarding her retinal disease, she did not mention that it is due to arterial occlusion but it was due to hemorrhage. For this reason, I do not see a contraindication of tamoxifen after she will finish her radiation therapy. Patient started radiation therapy September 2018 and she is currently on radiation therapy and she has about three weeks to finish it. I will see her after she will finish her radiation therapy with CBC, chem panel and vitamin D level and to start tamoxifen at that time. PLAN 1. Continue followup. 2. Patient to return in one month with CBC, chem panel and vitamin B complex. 3. Consider treatment with tamoxifen 20 mg daily after she will finish her radiation therapy. 4. Patient to contact us for any new concerns or complaints. [facility]
[2018-11-24 09:50] VITALS: BP 152/90
[2018-11-26 10:54] LABS: PLATELET COUNT, AUTOMATED 271 K/uL (150-450)
[~2018-11-27] VITALS: Ht 162.8 cm; Wt 75.2 kg
[2018-11-27 10:27] VITALS: BP 129/76
--- NOTE | 2018-11-27 12:06 | EL-TARABILY ONCOLOGY NOTE ---
EVENT DATE: November 27, 2018 DIAGNOSIS DCIS of the left breast. CHIEF COMPLAINT Patient is here today for followup of her DCIS of the left breast. ONCOLOGY HISTORY Patient is a 68-year old female which on: 1. August 14, 2018: Screening mammogram showed pleomorphic calcification in the left breast. 2. September 01, 2018: Patient had bilateral diagnostic mammogram with CAD-assisted interpretation and 3D tomosynthesis and it was suspicious for malignancy. 3. September 12, 2018: Patient had needle localization lumpectomy of the left breast and pathology came back positive for 1.2 cm micropapillary and cribriform DCIS, ER 82.5%, SC 40.9%, HER2/mirna 0%, Ki-67 2% and D53 1%. Patient started adjuvant radiation therapy September 2018. 4. Patient started adjuvant radiation therapy of her left breast and she completed radiation therapy on December 06, 2018. HISTORY OF PRESENT ILLNESS Patient is here today for followup of her DCIS of the left breast. She has 29 treatments of radiation therapy and she has five treatments to go. She is tolerating treatment very well. She is complaining of some pain in her knees and jaws, which is chronic. She has also headache frequently. She is weak, tired and fatigued. PAST MEDICAL HISTORY 1. 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 2. Hyperlipidemia. 3. Migraine. 4. Restless leg syndrome. 5. GERD. 6. Peptic ulcer disease. 7. Depression. PAST SURGICAL HISTORY 1. Bilateral arthroscopic knee surgeries. 2. Hernia repair. 3. Laparoscopy at age of 29 years. 4. Breast biopsy x2. 5. Bilateral cataract surgery. FAMILY HISTORY Father had melanoma and squamous cell carcinoma of the skin. SOCIAL HISTORY Patient is with two children. She is a retired teacher. Denies any abuse of tobacco, alcohol or illicit drugs. CURRENT MEDICATIONS 1. Docusate sodium 100 mg capsule twice a day. 2. Zoloft 25 mg daily. 3. Liothyronine sodium 5 mcg daily. 4. Venlafaxine 225 mg one tablet daily. 5. Crestor 10 mg daily. 6. Protonix 40 mg daily. 7. Imitrex 100 mg as needed. 8. Melatonin 10 mg at bedtime. 9. Tylenol p.r.n. 10. Tramadol 50 mg every six hours p.r.n. 11. Calcium magnesium tablets one tablet daily. 12. Vitamin D 1000 units daily. 13. Vitamin B complex one tablet daily. 14. [place] 10/325 mg q.4h p.r.n. for pain. 15. Preserve Vision one capsule daily. 16. Glucosamine Chondroitin Complex one tablet daily. ALLERGIES Sulfa. It does not actually cause allergic reactions but she did not improve on Sulfa antibiotic. REVIEW OF SYSTEMS CONSTITUTIONAL: No appetite or weight change. No fever, chills or sweating. No recent infection. HEENT: Ears: No tinnitus or hearing problem. Nose: No nasal discharge or epistaxis. Throat: No sore throat or mouth ulcers. Eyes: No diplopia or visual changes. RESPIRATORY: She has cough with little phlegm. CARDIOVASCULAR: No chest pain, orthopnea, or paroxysmal nocturnal dyspnea (PND). No edema. No palpitations. GASTROINTESTINAL: No nausea or vomiting. No diarrhea or constipation. No change in bowel movements. No heartburn or swallowing difficulties. No abdominal pain. No jaundice. No hematemesis, melena or rectal bleeding. GENITOURINARY: Patient has had heavy periods for years, and she has been seen by a office machine technician, and she was offered uterine ablation, but the patient refused the procedure. As per patient, she has had heavy periods for a total of seven days every month. MUSCULOSKELETAL: Patient has pain in her knees and jaws. NEUROLOGICAL: She has headache. HEMATOLOGIC/LYMPHATIC: She is weak, tired and fatigued. SKIN: No skin rash or lumps. PSYCHIATRIC: No anxiety or depression. PHYSICAL EXAMINATION GENERAL: Looks stable. Well-developed, well-nourished, and in no acute distress. VITAL SIGNS: Blood pressure 129/76, pulse 68 per minute, respirations 16 per minute, temperature 98.7, pulse ox 92% on room air. HEENT: Head: Atraumatic. No sinus tenderness to palpation. Eyes: No icterus or conjunctivitis. Mouth and Throat: No oral thrush or mucositis. NECK: Supple. No cervical or supraclavicular lymphadenopathy. LUNGS: Clear to auscultation and percussion bilaterally. HEART: Regular rate and rhythm. No gallops, murmurs, clicks or rubs. ABDOMEN: Soft and lax. No tenderness. No hepatosplenomegaly. No masses. EXTREMITIES: No cyanosis, clubbing or edema. LYMPHATICS: No peripheral lymphadenopathy. NEUROLOGICAL: Conscious, alert and oriented x3. No focal motor or sensory deficits. PSYCHIATRIC: Mood and affect appear normal. SKIN: No skin rash, bruise or purpuric eruption. DIAGNOSTIC DATA CBC showed white count 4.8, hemoglobin 13.9, hematocrit 42.9, platelets 271,000. Chem panel totally normal except carbon dioxide 21, blood sugar 114. Vitamin D level was 33. ASSESSMENT Ductal carcinoma in situ of the left breast, status post needle localization lumpectomy of the left breast done September 12, 2018, and the pathology came back positive for 1.2 cm micropapillary and cribriform ductal carcinoma in situ, ER 82.5% positive, SC 40.9% positive, HER2/mirna 0%, Ki-67 2% and P53 1%. Patient currently is receiving radiation therapy of her left breast. She had 29 treatments so far and she has five treatments to go and she will finish her adjuvant radiation therapy on December 06, 2018. Patient has a concern about the Tamoxifen because she has bad migraine, especially when she used in the past oral contraceptive pills and for this reason I talked to her about Aromasin, which is one of the aromatase inhibitors, which can work also for DCIS and it will be purely antiestrogenic so I am not expecting it will increase the frequency and severity of her migraine headaches and patient is agreeable with that. Prior to starting her Aromasin, I am planning to get a baseline DEXA scan as Aromasin is a bad drug on osteoporosis and osteoporotic fracture and patient is aware of that. I will see her after the above prior to starting her treatment with Aromasin 25 mg daily. PLAN 1. Continue followup. 2. DEXA scan. 3. Patient to return after the above for further evaluation and management. 4. Consider treatment with Aromasin for five years instead of Tamoxifen. 5. Patient to contact us for any new concerns or complaints. [facility]
[2018-12-23] MEDS ORDERED: ROSU10TA PO (13:45)
== END 2019-01-21 ==
LOC: ONC 10:21
PROVIDERS: ATTEND Internal Medicine Hematology
DX: D05.12 Intraductal carcinoma in situ of left breast (principal); Z17.0 Estrogen receptor positive status [ER+]; R53.83 Other fatigue; R53.1 Weakness; R51 Headache; R05 Cough
CPT/HCPCS: 36415; 82306; 85025; G0463; 82040; 82247; 82310; 82374; 82435; 82565; 82947; 84075; 84132; 84155; 84295; 84450; 84460; 84520; 99202; 99212

== ENCOUNTER → 2018-12-02 | Outpatient (CLI) | payer MEDICARE, OTHER ==
--- NOTE | 2018-12-02 12:54 | RADIOLOGY IMAGING REPORT ---
FACILITY: [facility] PATIENT NAME: Vicky Hughes : 1950 MR: [id number] V: [id number] EXAM DATE: ORDERING PHYSICIAN: ISABEL MNEDOZA TECHNOLOGIST: Location: [facility] Patient: Vicky Hughes : 1950 Visit/Account:[id number] Date of Sevice: 12/02/2018 DEXA Scan Clinical history: Osteopenia. Comparison: None available. LUMBAR SPINE: The bone mineral density (BMD) measured from L1-L4 correlates with a Z-score 1.3 and a T-score of -0. 2 which is Normal as defined by the World Health Organization. The corresponding risk of fracture in the lumbar spine is Not increased compared with a young adult reference population. HIP: Bone mineral density (BMD) measured in the Left femoral neck region correlates with a Z-score -0.7 an d a T-score of -2.2 which is osteopenia as defined by the World Health Organization. The correspondi ng risk of fracture in the hip is increased compared with a young adult reference population. Bone mineral density (BMD) measured in the Femoral Neck region measures 0.730 g/cm2. Impression: 1. Lumbar spine: Normal. 2. Left femoral neck region: Osteopenia. 3. Femoral Neck: Bone Mineral Density is 0.730 g/cm2 The next DEXA scan of this patient should include the following sites: L1-L4 and the left hip. FRAX? WHO Fracture Risk Assessment Tool link: <http://www.shef.ac.uk/FRAX/tool.jsp?locationValue=9> PLEASE NOTE: 1) The World Health Organization defines low BMD as follows: T-score Normal > -1 Osteopenia < -1 and > -2.5 Osteoporosis < -2.5 without fractures Established osteoporosis < -2.5 with fractures 2) In general, you may wish to consider: Diagnosis Treatment Follow-up DEXA Normal BMD Prevention 2-3 years Osteopenia Prevention/therapy 1-2 years Osteoporosis Therapy Yearly 3) Fracture risk estimated from the T-score is more accurate for vertebral fractures (often spontane ous) than for hip fractures. Report Dictated By: Primitivo Dior at 12/02/2018 12:48 PM Report E-Signed By: Primitivo Dior at 12/02/2018 12:50 PM WSN:[email or web address]
== END ==
LOC: RAD 00:11
PROVIDERS: ATTEND Internal Medicine Hematology
DX: Z13.820 Encounter for screening for osteoporosis (principal); M85.852 Other specified disorders of bone density and structure, left thigh
CPT/HCPCS: 77080

== ENCOUNTER → 2019-02-10 | Emergency (ER) | payer MEDICARE, OTHER ==
[~2019-02-10] MED LIST changes: +AZIT-1 PO; +CEPH500T7 PO; +DEXAMETHASONE SOD PHOS 10MG/ML IVP ONE; +EXE25PT PO; +NS(*) 0.9% 1000 ML BAG 1,000 ML IV ONE; +PROMETHAZINE 25 MG/ML 1 ML AMP IVP ONE; +SUMA25TA26 PO; +diphenhydrAMINE 50 MG/ML VIAL IVP ONE
--- NOTE | 2019-02-10 14:27 | ER Report ---
History and Physical Time Seen By MD: 14:22 HPI/ROS CHIEF COMPLAINT: Headache HISTORY OF PRESENT ILLNESS: This is a 69-year-old female who presents to emergency department for a migraine headache. Patient states that she is recently changed medications for breast cancer treatment, the medication she is currently taking contains estrogen, this seems to trigger her headaches, she been taking sumatriptan for her headaches, she ran out yesterday, she took a hydrocodone, Tylenol and Aleve with no improvement today, the headache began around 11:30, is a typical migraine headache, she is photophobic. Slight nausea no vomiting. No rashes, no meningismus. No chest pain or shortness of breath. REVIEW OF SYSTEMS: Constitutional: No fever, no chills. Eyes: No discharge. ENT: No sore throat. Cardiovascular: No chest pain, no palpitations. Respiratory: No cough, no shortness of breath. Gastrointestinal: No abdominal pain, no vomiting. Genitourinary: No hematuria. Musculoskeletal: No back pain. Skin: No rashes. Neurological: As above. Allergies: Coded Allergies: Sulfa (Sulfonamide Antibiotics) (Verified Allergy, Severe, GENERALIZED SYMPTOMS , 02/10/19) Home Meds Active Scripts Sumatriptan Succinate (IMITREX) 25 Mg Tablet, 25 MG PO ONCE, #9 TAB Take 1 tab at onset of headache, may repeat x1 after 2 hours if headache persists. Prov:JUDY BURT SECURITY TRAINER-BC 02/10/19 Exemestane (AROMASIN) 25 Mg Tab, 25 MG PO DAILY for 30 Days, #30 TAB 6 Refills Prov:LORRI QUINTANILLA SECURITY TRAINER-C 01/28/19 Rosuvastatin Calcium (CRESTOR) 10 Mg Tab, 10 MG PO QDAY, #90 TAB 1 Refill Prov:DORI BATISTA MD 12/23/18 Docusate Sodium (COLACE) 100 Mg Capsule, 1 CAP PO BID, #30 CAP 0 Refills TAKE WITH A FULL GLASS OF WATER Prov:ASHLEY TAM MD 09/12/18 Sertraline Hcl (ZOLOFT) 25 Mg Tablet, 1 TAB PO QDAY, #90 TAB 3 Refills Prov:DORI BATISTA MD 08/18/18 Liothyronine Sodium (LIOTHYRONINE SODIUM) 5 Mcg Tablet, 1 TAB PO DAILY, #90 TAB PRN Refills Prov:DORI BATISTA MD 08/18/18 Venlafaxine Hcl (VENLAFAXINE HCL ER) 225 Mg Tab.er.24, 1 TAB PO QDAY, #90 TAB 3 Refills Prov:DORI BATISTA MD 08/14/18 Sumatriptan Succinate (IMITREX) 100 Mg Tablet, 1 TAB PO ONCE PRN for migraine, #6 TAB Prov:DORI BATISTA MD 08/05/18 Pantoprazole Sodium (PROTONIX) 40 Mg Tablet.dr, 1 TAB PO QDAY, #90 TAB.SR 3 Refills Prov:MILAGROS EDWARDS MD 03/31/18 Reported Medications Zolpidem Tartrate (AMBIEN) 10 Mg Tablet, 0.5 TAB PO QHS, TAB 11/13/18 Furosemide (FUROSEMIDE) 40 Mg Tablet, 1 TAB PO DAILY, TAB 10/28/18: CALLED TO [facility]; #30, NO REFILLS 10/28/18 Echinacea (ECHINACEA) Unknown Strength Capsule 07/14/18 Melatonin (MELATONIN) 10 Mg Capsule, 10 MG PO QHS, CAPSULE 07/14/18 [tylenol pm] No Conflict Check, 2 TAB PO QHS 07/14/18 Calcium/Magnesium (CALCIUM MAGNESIUM TABLET) 1 Each Tablet, 1 EACH PO DAILY 07/14/18 Cholecalciferol (Vitamin D3) (VITAMIN D) 1,000 Unit Capsule, 1 CAP PO QDAY, CAPSULE 12/31/17 Vitamin B Complex (B COMPLEX) 1 Each Tablet, 1 TAB PO QDAY 12/26/17 Valerian Root (VALERIAN ROOT) 100 Mg Capsule, 3 CAP PO HS, CAPSULE 04/17/15 Acetaminophen/Hydrocodone (HYDROCODON-ACETAMINOPHN 10-325) 1 Each Tab, 1 EACH PO Q4H PRN for PAIN, TAB 04/17/15 Vit C/Beba Ac/Lut/Copper/Znox (PRESERVISION LUTEIN SOFTGEL) 1 Each Capsule, 1 CAP PO QDAY, CAPSULE 10/20/14 Yzryfaew-Zjzxrhu-Pupe 149-Hyal (GLUCOSAMINE CHONDROITIN COMPLX) 1 Each Tablet, 1 TAB PO DAILY 03/29/14 Discontinued Reported Medications Tramadol Hcl (TRAMADOL HCL) 50 Mg Tablet, 50 MG PO Q6H PRN for PRN, TAB 07/14/18 Discontinued Scripts Azithromycin (ZITHROMAX) 250 Mg Tablet, 2 TAB PO ONCE, #6 TAB 2 tabs now and then 1 daily. Prov:DORI BATISTA MD 02/02/19 Cephalexin 500 Mg Tab (KEFLEX 500 MG TAB) 500 Mg Tablet, 500 MG PO TID, #21 TAB Prov:DORI BATISTA MD 02/02/19 Past Medical/Surgical History The patient has a past medical and surgical history of migraine headaches, hypertension, arrhythmias, hypercholesterolemia, EGD, gastric ulcer, Patel's esophagus, H. pylori, GERD, I will hernia repair, imagery emesis, menopause, arthritis, lying in the left eye, macular degeneration right eye, multiple eye surgeries, hypothyroidism, skin cancer, basal cell excision. Depression, breast biopsies, colonoscopy, meniscus repair bilateral knees. Reviewed Nurses Notes: Yes Hx Smoking: No Smoking Status: Never Smoker Exposure to Second Hand Smoke?: Yes (father smoked) Hx Substance Use Disorder: No Hx Alcohol Use: Yes Constitutional Vital Sign - Last 24 Hours 02/10/19 02/10/19 02/10/19 02/10/19 14:19 14:22 14:26 14:30 Temp 98.6 Pulse ??? 82 Resp 20 B/P (MAP) 139/91 (107) 139/91 126/84 (98) Pulse Ox 92 O2 Delivery Room Air 02/10/19 02/10/19 02/10/19 02/10/19 14:39 14:45 14:59 15:00 Pulse 88 70 B/P (MAP) 139/82 (101) 101/38 (59) Pulse Ox 90 95 02/10/19 02/10/19 02/10/19 02/10/19 15:15 15:19 15:39 15:45 Pulse 90 71 B/P (MAP) 66/55 (59) 107/72 (84) Pulse Ox 92 02/10/19 02/10/19 15:59 16:00 Pulse 72 B/P (MAP) 105/72 (83) Physical Exam General Appearance: The patient is alert, has no immediate need for airway protection and no signs of toxicity. Eyes: Pupils equal and round no pallor or injection. ENT, Mouth: Mucous membranes are moist. Respiratory: There are no retractions, lungs are clear to auscultation. Cardiovascular: Regular rate and rhythm. Gastrointestinal: Abdomen is soft and non tender, no masses, bowel sounds normal. Neurological: Alert and oriented 4. Moving all extremities. Following. No focal neurodeficits Skin: Warm and dry, no rashes. Musculoskeletal: Neck is supple non tender. Extremities are nontender, nonswollen and have full range of motion. DIFFERENTIAL DIAGNOSIS: After history and physical exam differential diagnosis was considered for headache including but not limited to subarachnoid hemorrhage, migraine headache, tension headache and infectious causes such as meningitis, pharyngitis and sinusitis. Medical Decision Making ED Course/Re-evaluation Clinical Indication for ER IV: Hydration, IV Access ED Course The patient was admitted to a room. A history and physical obtained. Differential diagnoses were considered. An IV was started. A 1 L normal saline bolus was given. 12.5 mg IV Phenergan, 25 mg IV Benadryl, 10 mg IV Decadron, patient had significant improvement of her symptoms, she states the headache is "basically gone", patient states she is ready to go home. I did send a prescription for sumatriptan to the patient's pharmacy, she'll take as directed and follow-up with her primary care provider for refills she returned a year for any other concerns or worsening symptoms agreeable with this plan of care and discharged home. Decision to Disposition Date: Feb 10, 2019 Decision to Disposition Time: 16:01 Depart Departure Latest Vital Signs Vital Signs Date Time Temp Pulse Resp B/P (MAP) Pulse Ox O2 Delivery O2 Flow Rate FiO2 02/10/19 16:00 105/72 (83) 02/10/19 15:59 72 02/10/19 15:19 92 02/10/19 14:26 98.6 20 Room Air Impression: Primary Impression: Migraine headache Condition: Improved Disposition: HOME OR SELF-CARE Referrals: DORI BATISTA MD (PCP) 1 Week New Scripts Sumatriptan Succinate (IMITREX) 25 Mg Tablet 25 MG PO ONCE, #9 TAB Take 1 tab at onset of headache, may repeat x1 after 2 hours if headache persists. Prov: JUDY BURT SECURITY TRAINER-BC 02/10/19 Patient Instructions: Migraine Headache (ED) Additional Instructions: I have sent a prescription for sumatriptan [facility], please pick these up and use as directed. For future medication refills please follow up with her primary care provider. Please follow-up with your neurologist for recurrent migraine headaches. Get plenty of rest. Drink plenty of water. Return to the ER for any other concerns or worsening symptoms. Problem Qualifiers Primary Impression: Migraine headache Migraine type: without aura Status migrainosus presence: with status migrainosus Intractability: not intractable Qualified Codes: G43.001 - Migraine without aura, not intractable, with status migrainosus JUDY BURTP-BC Feb 10, 2019 14:27
[2019-02-10 16:00] VITALS: BP 105/72
--- NOTE | 2019-02-11 10:51 | NUR ---
Patient phoned me to discuss her aromasin and its possible link to her migraines. Pt mentioned her history of migraines, especially as they relate to estrogen-containing medications. Pt went to ER last night where she was giving "steroids, hydration, and zofran" (not confirmed with ER note). Pt stated that she was given a prescription for sumatriptan, which she has used in the past to successfully treat migraines. I gave pt an appt on 02/16/19 with Desi Ospina NP and told pt that nurses would discuss her side effects with Dr. Hilario later this week when he is in [place].
== END ==
LOC: ER 14:36
DX: G43.909 Migraine, unspecified, not intractable, without status migrainosus (principal); E03.9 Hypothyroidism, unspecified; I10 Essential (primary) hypertension; Z85.3 Personal history of malignant neoplasm of breast; Z79.899 Other long term (current) drug therapy
CPT/HCPCS: 96361; 96374; 96375; 99284; J1100; J1200; J2550; J7030